=== PATIENT | female | born 1980 | race Caucasian/White ===

== ENCOUNTER → 2016-09-08 | Outpatient (REF) | payer OTHER | LOC: M LAB REF 16:30 | PROVIDERS: ATTEND Physician Assistant | DX: N39.0 Urinary tract infection, site not specified (principal) ==

== ENCOUNTER → 2017-03-06 | Outpatient (CLI) | payer OTHER ==
--- NOTE | 2017-03-06 18:34 | REP ---
Digital diagnostic bilateral mammography with CAD and focused left breast sonography: History: Palpable lump at the 10-11 o'clock position left breast areolar border. Mammographic findings: Routine views the right breast are obtained. A skin marker is affixed to the skin at the site of the palpable lump in the left breast and routine views of the left breast are in obtained along with magnified focal spot compression CC, MLO and true MLO views. Today's mammographic views shows scattered fibroglandular elements. No mass density or nodularity is seen in the area of palpable lump in the left breast. There are two benign appearing intramammary lymph nodes in the inferomedial aspect of the left breast posteriorly. No other significant mammographic finding is seen on either side. Breast parenchyma shows no evidence of architectural distortion or microcalcification. No worrisome skin change is seen. Sonographic findings: Left breast is examined about the palpable area which is located approximate 12 o'clock on the areola. There is a superficial intradermal slightly hypoechoic area measuring 0.9 x 0.7 x 0.3 centimeters. A focal thickening of the epidermis is seen at this location. There appears to be internal venous flow within the area. The underlying breast parenchyma shows fairly homogeneous fat texture. No other sonographic finding. Impression: The palpable lump is seen by sonography to correspond with an intradermal oval-shaped area of skin thickening. This is nonspecific and could be inflammatory or neoplastic. Clinical followup and sonographic followup are advised. BIRADS category is felt to be best assigned as category three probably benign breast imaging. 6-month follow-up focused ultrasound of the left breast suggested. This mammogram was interpreted with the aid of an FDA-approved computer-aided detection system. The patient states she/he had a clinical breast exam in February 2017. The patient letter being requested is M3. Signed by Jw Peralta MD 03/06/2017 06:44 P
== END ==
LOC: M RAD 14:57
PROVIDERS: ATTEND Nurse Practitioner Family
DX: N63 Unspecified lump in breast (principal)
CPT/HCPCS: 76642; G0204

== ENCOUNTER → 2018-05-05 | Outpatient (REF) | payer OTHER ==
[2018-05-05 21:42] LABS: APPEARANCE, URINE HAZY (CLEAR); BACTERIA, URINE AUTO 1+ (NEGATIVE); BILIRUBIN, URINE AUTO NEGATIVE (NEGATIVE); BLOOD, URINE BLOOD 2+ (NEGATIVE); CALCIUM OXALATE CRYSTALS SMALL; COLOR, URINE YELLOW (YELLOW); GLUCOSE, URINE (UA) AUTO NEGATIVE (NEGATIVE); KETONE, URINE AUTO NEGATIVE (NEGATIVE); LEUKOCYTE ESTERASE, URINE AUTO 2+ (NEGATIVE); MUCUS, URINE SMALL (NEGATIVE); NITRITE, URINE AUTO NEGATIVE (NEGATIVE); PROTEIN, URINE AUTO NEGATIVE (NEGATIVE); RBC, URINE AUTO 8 /HPF (0-3); SPECIFIC GRAVITY URINE AUTO 1.021 (1.002-1.035); SQUAMOUS EPITHELIAL CELL UR AU 5 /HPF (0-6); TRANSITIONAL EPITHELIAL AUTO <1 /HPF; UROBILINOGEN, URINE AUTO 0.2 mg/dL (0.0-2.0); WBC, URINE AUTO 88 /HPF (0-3)
== END ==
LOC: M LAB REF 09:25
DX: N39.0 Urinary tract infection, site not specified (principal)

== ENCOUNTER 2019-07-10 19:38 | Emergency (ER) | payer OTHER ==
[~2019-07-10] VITALS: Ht 175.3 cm; Wt 104.5 kg
[2019-07-10] MEDS ORDERED: CYCL10TA PO (19:45)
[2019-07-10] MEDS ORDERED: NAPR-885 PO (19:45)
[2019-07-10] MEDS ORDERED: LISI10TA15 PO (19:47)
[2019-07-10] MEDS ORDERED: KETOROLAC 60 MG/2 ML VIAL (J1885) IM ONE (20:15)
[2019-07-10] MEDS ORDERED: diazePAM 10 MG TAB PO ONE (20:15)
[2019-07-10] MEDS ORDERED: LIDOCAINE 5% (LIDODERM) PATCH TD ONE (20:15)
[2019-07-10] MEDS ORDERED: predniSONE 20 MG TAB PO ONE (20:15)
[2019-07-10] MEDS ORDERED: **NOTE PATIENT COMMENT** MISC XX SCH (21:00)
[2019-07-10] MEDS ORDERED: LIDO5DIS41 TD (21:25)
[2019-07-10] MEDS ORDERED: METH1TAB40 PO (21:25)
[2019-07-10] MEDS ORDERED: PRED20TA PO (21:25)
[2019-07-10 21:35] VITALS: BP 126/66
== END 2019-07-10 21:36 | disposition home or self-care (01) ==
LOC: M ED 19:38
DX: M62.830 Muscle spasm of back (principal); M54.2 Cervicalgia; I10 Essential (primary) hypertension; Z79.899 Other long term (current) drug therapy
CPT/HCPCS: 96372; 99283; J1885

== ENCOUNTER → 2019-08-12 | Outpatient (REF) | payer OTHER ==
[~2019-08-12] MED LIST: CYCL10TA PO; LIDO5DIS41 TD; LISI10TA15 PO; METH1TAB40 PO; NAPR-885 PO; PRED20TA PO
== END ==
LOC: M LAB REF 12:51
PROVIDERS: ATTEND Nurse Practitioner Family
DX: R30.0 Dysuria (principal)

== ENCOUNTER → 2019-12-10 | Outpatient (REF) | payer OTHER ==
[~2019-12-10] MED LIST changes: +CYCL-707 PO; -CYCL10TA PO
[2019-12-10 18:05] LABS: APPEARANCE, URINE HAZY (CLEAR); BACTERIA, URINE AUTO 1+ (NEGATIVE); BILIRUBIN, URINE AUTO NEGATIVE (NEGATIVE); BLOOD, URINE BLOOD 2+ (NEGATIVE); COLOR, URINE STRAW (YELLOW); GLUCOSE, URINE (UA) AUTO NEGATIVE (NEGATIVE); KETONE, URINE AUTO NEGATIVE (NEGATIVE); LEUKOCYTE ESTERASE, URINE AUTO 3+ (NEGATIVE); MUCUS, URINE SMALL (NEGATIVE); NITRITE, URINE AUTO NEGATIVE (NEGATIVE); PROTEIN, URINE AUTO NEGATIVE (NEGATIVE); RBC, URINE AUTO 1 /HPF (0-3); SPECIFIC GRAVITY URINE AUTO 1.003 (1.002-1.035); SQUAMOUS EPITHELIAL CELL UR AU 1 /HPF (0-6); UROBILINOGEN, URINE AUTO 0.2 mg/dL (0.0-2.0); WBC, URINE AUTO 112 /HPF (0-3)
== END ==
LOC: M LAB REF 16:30
PROVIDERS: ATTEND Physician Assistant
DX: N39.0 Urinary tract infection, site not specified (principal)

== ENCOUNTER → 2022-10-30 | Outpatient (REF) | payer OTHER ==
[~2022-10-30] MED LIST changes: -LISI10TA15 PO; +LISI10TA24 PO; +METH-1164 PO; -METH1TAB40 PO
== END ==
LOC: M PLALAB 10:19
PROVIDERS: ATTEND Nurse Practitioner Family
DX: Z12.4 Encounter for screening for malignant neoplasm of cervix (principal); R87.610 Atypical squamous cells of undetermined significance on cytologic smear of cervix (ASC-US)
CPT/HCPCS: 87624; G0123

== ENCOUNTER → 2025-05-28 | Outpatient (REF) | payer OTHER ==
[~2025-05-28] MED LIST changes: +LIDO1ADH93 TD; -LIDO5DIS41 TD
[2025-05-30 13:48] LABS: HPV APTIMA Not Detected (Not Detected)
== END ==
LOC: M SFHCWAGY 15:16
PROVIDERS: ATTEND Obstetrics & Gynecology
DX: Z12.4 Encounter for screening for malignant neoplasm of cervix (principal); R87.610 Atypical squamous cells of undetermined significance on cytologic smear of cervix (ASC-US)
CPT/HCPCS: 87624; G0123

== ENCOUNTER → 2025-08-11 | Outpatient (REF) | payer OTHER | LOC: M PLALAB 14:06 | PROVIDERS: ATTEND Obstetrics & Gynecology | DX: R87.610 Atypical squamous cells of undetermined significance on cytologic smear of cervix (ASC-US) (principal) ==